=== PATIENT | male | born 1985 | race Caucasian/White ===

== ENCOUNTER 2021-09-22 07:29 | Emergency (ER) | payer BC ==
[~2021-09-22] VITALS: Ht 170.2 cm; Wt 59.0 kg
[2021-09-22] MEDS ORDERED: LORAZEPAM 1 MG TABLET ONE (07:53)
--- NOTE | 2021-09-22 07:59 | NUR ---
PO ativan given as ordered.
[2021-09-22] MEDS ORDERED: LORAZEPAM 1 MG TABLET PO ONE (08:00)
[2021-09-22 08:45] VITALS: BP 132/75
[2021-09-22] MEDS ORDERED: LORA-258 PO (08:47)
--- NOTE | 2021-09-22 08:52 | NUR ---
Patient discharged to home in stable condition. Written and verbal after care instructions given. Patient verbalizes understanding of instruction.
== END 2021-09-22 08:53 | disposition home or self-care (01) ==
LOC: ER 07:45
DX: F41.0 Panic disorder [episodic paroxysmal anxiety] (principal); F32.A Depression, unspecified; Z60.2 Problems related to living alone; Z79.899 Other long term (current) drug therapy
CPT/HCPCS: 71045-TC

== ENCOUNTER 2021-09-23 06:58 | Emergency (ER) | payer BC ==
[~2021-09-23] VITALS: Ht 170.2 cm; Wt 63.5 kg
[~2021-09-23 06:58] MED LIST: LORA-258 PO
--- NOTE | 2021-09-23 07:17 | NUR ---
BIBS C/O ANXIETY AND INSOMNIA X2DAYS. PT A/OX4. TOLERATING R/A WELL WITH NO SOB. AMBULATORY WITH STEADY GAIT. SAFETY MEASURES IN PLACE.
[2021-09-23 07:19] VITALS: BP 138/92
[2021-09-23] MEDS ORDERED: LORAZEPAM INJ 2 MG/ML VIAL ONE (07:21)
[2021-09-23] MEDS ORDERED: LORAZEPAM INJ 2 MG/ML VIAL IM ONE (07:30)
--- NOTE | 2021-09-23 08:13 | NUR ---
Patient discharged to home in stable condition. Written and verbal after care instructions given. Patient verbalizes understanding of instruction.
== END 2021-09-23 08:13 | disposition home or self-care (01) ==
LOC: ER 07:00
DX: F41.9 Anxiety disorder, unspecified (principal); G47.00 Insomnia, unspecified; F32.A Depression, unspecified; Z60.2 Problems related to living alone; Z79.899 Other long term (current) drug therapy
CPT/HCPCS: 99283; 96372; J2060

== ENCOUNTER 2021-11-10 04:16 | Emergency (ER) | payer BC ==
[~2021-11-10] VITALS: Ht 170.2 cm; Wt 63.5 kg
[2021-11-10 05:13] VITALS: BP 126/80
[2021-11-10] MEDS ORDERED: ZOLP10TA2 PO (05:43)
[2021-11-10] MEDS ORDERED: NICO-676 TP (05:45)
[2021-11-20] MEDS ORDERED: ESZO3TAB27 PO (14:53)
== END 2021-11-10 06:01 | disposition home or self-care (01) ==
LOC: ER 04:22
DX: G47.00 Insomnia, unspecified (principal); F17.200 Nicotine dependence, unspecified, uncomplicated; M79.675 Pain in left toe(s); F41.9 Anxiety disorder, unspecified; F32.A Depression, unspecified; Z60.2 Problems related to living alone; Z79.899 Other long term (current) drug therapy

== ENCOUNTER 2021-11-19 05:37 | Emergency (ER) | payer BC ==
[~2021-11-19] VITALS: Ht 170.2 cm; Wt 63.5 kg
[~2021-11-19 05:37] MED LIST changes: +NICO-676 TP; +ZOLP10TA2 PO
[2021-11-19 06:02] VITALS: BP 106/73
--- NOTE | 2021-11-19 06:02 | NUR ---
BIBSELF FROM HOME C/O WAKING UP FEELING SOB, "FEELS LIKE THROAT IS SWOLLEN" X FEW DAYS. TOLERATING R/A AT 94%. RESP EVEN AND NON LABORED. DENIES SORE THROAT. A/OX4. AMB WITH STEADY GAIT
--- NOTE | 2021-11-19 06:19 | NUR ---
DR. LAW OH AT PT'S BEDSIDE
[2021-11-19] MEDS ORDERED: ONDA4TAB11 PO (06:26)
[2021-11-19] MEDS ORDERED: ESZO3TAB27 PO (06:26)
[2021-11-19] MEDS ORDERED: IBUPROFEN 400 MG TABLET ONE (06:27)
[2021-11-19] MEDS ORDERED: IBUPROFEN 400 MG TABLET PO ONE (06:30)
[2021-11-20] MEDS ORDERED: ESZO3TAB27 PO (14:53)
== END 2021-11-19 06:42 | disposition home or self-care (01) ==
LOC: ER 06:20
DX: J02.9 Acute pharyngitis, unspecified (principal); F41.9 Anxiety disorder, unspecified; F32.A Depression, unspecified; F17.200 Nicotine dependence, unspecified, uncomplicated; Z60.2 Problems related to living alone; Z79.899 Other long term (current) drug therapy

== ENCOUNTER 2022-03-25 21:46 | Emergency (ER) | payer BC ==
[~2022-03-25] VITALS: Ht 170.2 cm; Wt 61.2 kg
[~2022-03-25 21:46] MED LIST changes: +ESZO3TAB27 PO; +ONDA4TAB11 PO
[2022-03-25] MEDS ORDERED: ONDANSETRON HCL/PF 4 MG/2 ML VIAL IVP ONE (22:30)
[2022-03-25] MEDS ORDERED: DICYCLOMINE HCL INJ 20 MG/2 ML AMPUL IM ONE ×2 (22:30→22:38)
[2022-03-25] MEDS ORDERED: IV NS 0.9% 1,000 ML BAG IV ONE (22:30)
[2022-03-25] MEDS ORDERED: ONDANSETRON HCL/PF 4 MG/2 ML VIAL ONE ×3 (22:38→23:58)
--- NOTE | 2022-03-25 22:52 | NUR ---
IV REBEKAH INSERTED ON LEFT AC G18.
[2022-03-25] MEDS ORDERED: ONDANSETRON HCL/PF 4 MG/2 ML VIAL IV ONE (23:30)
[2022-03-25] MEDS ORDERED: ONDA4TAB5 PO (23:35)
[2022-03-25] MEDS ORDERED: KETOROLAC TROMETHAMINE INJ 30 MG/ML VIAL ONE (23:58)
[2022-03-26] MEDS ORDERED: KETOROLAC TROMETHAMINE INJ 30 MG/ML VIAL IV ONE
[2022-03-26] MEDS ORDERED: ONDANSETRON HCL/PF 4 MG/2 ML VIAL IV ONE
--- NOTE | 2022-03-26 00:16 | NUR ---
IV CANNULA REMOVED
[2022-03-26 00:19] VITALS: BP 124/71
== END 2022-03-26 00:20 | disposition home or self-care (01) ==
LOC: ER 21:55
DX: K52.9 Noninfective gastroenteritis and colitis, unspecified (principal); R11.2 Nausea with vomiting, unspecified; F41.9 Anxiety disorder, unspecified; F32.A Depression, unspecified; F17.200 Nicotine dependence, unspecified, uncomplicated; Z60.2 Problems related to living alone; Z79.899 Other long term (current) drug therapy
CPT/HCPCS: 99284; 96374; 96361; 96376 ×2; 96372; 96375; J1885; J2405 ×3; J7030; J0500

== ENCOUNTER 2023-10-23 12:09 | Emergency (ER) | payer SELFPAY ==
[~2023-10-23 12:09] MED LIST changes: +ONDA4TAB5 PO
== END 2023-10-23 12:24 | disposition home or self-care (01) ==
LOC: ER 12:13
DX: T14.8XXA Other injury of unspecified body region, initial encounter (principal); Z53.21 Procedure and treatment not carried out due to patient leaving prior to being seen by health care provider; W57.XXXA Bitten or stung by nonvenomous insect and other nonvenomous arthropods, initial encounter; Y93.89 Activity, other specified; Y92.89 Other specified places as the place of occurrence of the external cause; Y99.8 Other external cause status

== ENCOUNTER 2023-10-25 22:23 | Emergency (ER) | payer SELFPAY ==
[~2023-10-25] VITALS: Ht 170.2 cm; Wt 61.2 kg
[2023-10-25 22:37] VITALS: BP 138/74; TEMP 98; O2SAT 99
== END 2023-10-26 00:52 | disposition left against medical advice (07) ==
LOC: ER 22:28
DX: M79.672 Pain in left foot (principal); Z53.21 Procedure and treatment not carried out due to patient leaving prior to being seen by health care provider

== ENCOUNTER 2023-11-22 16:49 | Inpatient (IN) | payer MEDICAID ==
[~2023-11-22] VITALS: Ht 170.2 cm; Wt 61.2 kg
[2023-11-22] MEDS ORDERED: ONDANSETRON HCL/PF 4 MG/2 ML VIAL ONE (17:14)
[2023-11-22] MEDS: ONDANSETRON HCL/PF 4 MG/2 ML VIAL IVP ONE (17:20)
[2023-11-22 17:23] LABS: BASOPHILS % (AUTO) 0.3 % (0.0-2.0); HEMATOCRIT 55 % (39-51); LYMPHOCYTES # (AUTO) 1.7 K/uL (0.8-4.8); MEAN CORPUSCULAR HEMOGLOBIN 33 PG (26.0-33.0); MEAN CORPUSCULAR HGB CONC 35 g/dl (31.0-36.0); MEAN CORPUSCULAR VOLUME 95 fL (80-96); MONOCYTES # (AUTO) 1.2 K/uL (0.1-1.30); MONOCYTES % (AUTO) 7.1 % (2.0-12.0); NEUTROPHILS # (AUTO) 13.7 K/uL (1.8-8.9); NEUTROPHILS % (AUTO) 82.6 % (43.0-81.0); PLATELET COUNT (AUTO) 327 K/uL (150-450); RED BLOOD CELL COUNT(AUTO) 5.83 MIL/uL (4.5-6.0); WHITE BLOOD COUNT (AUTO) 16.6 K/uL (4.3-11.0)
[2023-11-22] MEDS: IV NS 0.9% 250 ML BAG IV ONE (17:28)
[2023-11-22 17:32] LABS: HEMOGLOBIN 19.4 g/dL (13.5-17.5)
[2023-11-22 17:40] LABS: CALCIUM, SERUM 11.7 mg/dL (8.5-10.1); CARBON DIOXIDE 20 mmol/L (21-32); CHLORIDE 89 mmol/L (98-107); GLUCOSE 143 mg/dL (74-106); POTASSIUM 3.6 mmol/L (3.5-5.1); SODIUM SERUM 130 mmol/L (136-145); UREA NITROGEN, BLOOD 29 mg/dL (7-18)
[2023-11-22 17:48] LABS: ALANINE AMINOTRANSFERASE 27 U/L (12-78); ALBUMIN 5.8 g/dL (3.4-5.0); ALKALINE PHOSPHATASE 107 U/L (46-116); ASPARTATE AMINOTRANSFERASE 26 U/L (15-37); BILIRUBIN,DIRECT 0.3 mg/dL (0.0-0.2); BILIRUBIN,TOTAL 1.7 mg/dL (0.2-1.0); LIPASE 45 U/L (16-77); TOTAL PROTEIN, SERUM 9.8 g/dL (6.4-8.2)
[2023-11-22 18:01] LABS: LACTIC ACID 3.9 mmol/L (0.4-2.0)
[2023-11-22] MEDS ORDERED: MORPHINE SULFATE INJ 4 MG/ML DISP.SYRIN ONE (18:12)
[2023-11-22] MEDS: MORPHINE SULFATE INJ 2 MG/ML DISP.SYRIN IV ONE (18:17)
[2023-11-22] MEDS ORDERED: MORPHINE SULFATE INJ 2 MG/ML DISP.SYRIN IV ONE (18:30)
[2023-11-22 18:37] LABS: BAND % (MANUAL) 2 % (0.0-5.0); LYMPHOCYTES % (MANUAL) 7 % (16-48); MONOCYTES % (MANUAL) 7 % (0-11.0); NEUTROPHILS % (MANUAL) 84 (42-76); PLATELET ESTIMATE ADEQUATE
[2023-11-22 18:38] LABS: ANISOCYTOSIS 1+
[2023-11-22] MEDS ORDERED: HALOPERIDOL LACTATE INJ 5 MG/ML VIAL ONE (18:44)
[2023-11-22] MEDS: HALOPERIDOL LACTATE INJ 5 MG/ML VIAL IV ONE (18:58)
[2023-11-22] MEDS: IV NS 0.9% 1,000 ML BAG IV ONE (19:00)
[2023-11-22] MEDS ORDERED: MAG HYDROX/AL HYDROX/SIMETH 30 ML UDC PO PRN (20:30)
[2023-11-22] MEDS ORDERED: Z GUARD REMEDY 4 OZ OINT TP PRN (20:30)
[2023-11-22] MEDS ORDERED: MAGNESIUM HYDROXIDE 30 ML UDC PO PRN (20:30)
[2023-11-22] MEDS ORDERED: ACETAMINOPHEN 325 MG TABLET PO PRN (20:30)
[2023-11-22] MEDS ORDERED: ONDANSETRON HCL/PF 4 MG/2 ML VIAL IVP PRN (20:30)
[2023-11-22 20:50] VITALS: O2SAT 98
[2023-11-22 20:52] VITALS: BP 128/86; TEMP 98.4; O2SAT 99
[2023-11-22] MEDS: IV LR 1000 ML 1,000 ML IV SCH (21:50)
[2023-11-23] MEDS: MORPHINE SULFATE INJ 2 MG/ML DISP.SYRIN IV PRN (02:30)
[2023-11-23 05:09] LABS: APPEARANCE,URINE CLEAR (CLEAR); BILIRUBIN,URINE 1+ (NEGATIVE); BLOOD, URINE NEGATIVE Ery/uL (NEGATIVE); COLOR,URINE YELLOW (YELLOW); KETONES,URINE NEGATIVE (NEGATIVE); LEUKOCYTE ESTERASE ,URINE NEGATIVE (NEGATIVE); NITRITE, URINE NEGATIVE (NEGATIVE); PROTEIN,URINE 2+ mg/dl (NEGATIVE); UGLUCOSE NEGATIVE (NEGATIVE); UROBILINOGEN,URINE 0.2 EU/dL (0.2)
[2023-11-23 05:25] LABS: RBC,URINE 0-2 /HPF (0-2); WBC,URINE NONE SEEN /HPF (0-3)
[2023-11-23 05:26] LABS: ADD URINE CULTURE NO; BACTERIA,URINE 1+ /HPF (None Seen); FINE GRANULAR CASTS,URINE Few /LPF (None Seen); SQUAMOUS EPITHELIAL CELL,UR 0-2 /HPF (None Seen)
[2023-11-23 05:27] LABS: AMPHETAMINE, URINE NEGATIVE (NEGATIVE); BARBITURATE, URINE NEGATIVE (NEGATIVE); BENZODIAZEPINE, URINE NEGATIVE (NEGATIVE); COCCAINE, URINE NEGATIVE (NEGATIVE)
[2023-11-23 05:28] LABS: CANNABINOID, URINE POSITIVE (NEGATIVE); OPIATE, URINE POSITIVE (NEGATIVE); PHENCYCLIDINE SCREEN,URINE NEGATIVE (NEGATIVE)
[2023-11-23 07:00] VITALS: BP 104/62; TEMP 97.9; O2SAT 98
[2023-11-23 07:07] LABS: ALBUMIN 3.8 g/dL (3.4-5.0); BASOPHILS % (AUTO) 0.3 % (0.0-2.0); BILIRUBIN,TOTAL 0.9 mg/dL (0.2-1.0); CALCIUM, SERUM 9.4 mg/dL (8.5-10.1); CREATININE 1.3 mg/dL (0.6-1.3); EOSINOPHILS % (AUTO) 0.3 % (0.0-6.0); HEMATOCRIT 44 % (39-51); HEMOGLOBIN 15.6 g/dL (13.5-17.5); LYMPHOCYTES # (AUTO) 1.8 K/uL (0.8-4.8); LYMPHOCYTES % (AUTO) 22.8 % (20.0-44.0); MAGNESIUM 2.3 mg/dL (1.8-2.4); MEAN CORPUSCULAR HEMOGLOBIN 33 PG (26.0-33.0); MEAN CORPUSCULAR HGB CONC 36 g/dl (31.0-36.0); MEAN CORPUSCULAR VOLUME 93 fL (80-96); MONOCYTES # (AUTO) 0.8 K/uL (0.1-1.30); MONOCYTES % (AUTO) 10.5 % (2.0-12.0); NEUTROPHILS # (AUTO) 5.2 K/uL (1.8-8.9); NEUTROPHILS % (AUTO) 66.1 % (43.0-81.0); PHOSPHORUS 4.3 mg/dL (2.5-4.9); PLATELET COUNT (AUTO) 229 K/uL (150-450); POTASSIUM 3.3 mmol/L (3.5-5.1); RED BLOOD CELL COUNT(AUTO) 4.72 MIL/uL (4.5-6.0); RED CELL DISTRIBUTION WIDTH 12.9 % (11.5-15.0); TOTAL PROTEIN, SERUM 7.4 g/dL (6.4-8.2); WHITE BLOOD COUNT (AUTO) 7.9 K/uL (4.3-11.0)
[2023-11-23] MEDS: PANTOPRAZOLE 40 MG VIAL IV SCH (08:08)
[2023-11-23] MEDS ORDERED: CIPROFLOXACIN HCL 250 MG TABLET PO SCH (09:00)
[2023-11-23] MEDS: CIPROFLOXACIN HCL 500 MG TABLET PO SCH (10:25)
[2023-11-23] MEDS: DICYCLOMINE HCL 10 MG CAPSULE PO SCH (12:02)
[2023-11-23] MEDS: METRONIDAZOLE 500 MG TABLET PO SCH (12:02)
[2023-11-23 16:00] VITALS: BP 103/77; TEMP 98.1; O2SAT 99
[2023-11-23 21:06] VITALS: BP 107/77; TEMP 98.4; O2SAT 98
[2023-11-24 06:48] LABS: BASOPHILS % (AUTO) 0.9 % (0.0-2.0); EOSINOPHILS % (AUTO) 1.1 % (0.0-6.0); HEMATOCRIT 40 % (39-51); HEMOGLOBIN 13.8 g/dL (13.5-17.5); LYMPHOCYTES # (AUTO) 1.2 K/uL (0.8-4.8); LYMPHOCYTES % (AUTO) 30.5 % (20.0-44.0); MEAN CORPUSCULAR HEMOGLOBIN 33 PG (26.0-33.0); MEAN CORPUSCULAR HGB CONC 35 g/dl (31.0-36.0); MEAN CORPUSCULAR VOLUME 95 fL (80-96); MONOCYTES # (AUTO) 0.4 K/uL (0.1-1.30); MONOCYTES % (AUTO) 11.4 % (2.0-12.0); NEUTROPHILS # (AUTO) 2.1 K/uL (1.8-8.9); NEUTROPHILS % (AUTO) 56.1 % (43.0-81.0); PLATELET COUNT (AUTO) 167 K/uL (150-450); RED BLOOD CELL COUNT(AUTO) 4.17 MIL/uL (4.5-6.0); RED CELL DISTRIBUTION WIDTH 12.9 % (11.5-15.0); WHITE BLOOD COUNT (AUTO) 3.8 K/uL (4.3-11.0)
[2023-11-24 07:24] LABS: ALBUMIN 2.9 g/dL (3.4-5.0); BILIRUBIN,TOTAL 0.9 mg/dL (0.2-1.0); CALCIUM, SERUM 8.6 mg/dL (8.5-10.1); CREATININE 0.8 mg/dL (0.6-1.3); MAGNESIUM 1.9 mg/dL (1.8-2.4); PHOSPHORUS 2.5 mg/dL (2.5-4.9); POTASSIUM 3.8 mmol/L (3.5-5.1); TOTAL PROTEIN, SERUM 5.7 g/dL (6.4-8.2)
[2023-11-24 08:06] VITALS: BP 112/76; TEMP 97.9; O2SAT 99
[2023-11-24] MEDS ORDERED: IV LR 1000 ML 1,000 ML IV PRN (08:13)
[2023-11-24] MEDS: PANTOPRAZOLE 40 MG TABLET.DR PO SCH (09:14)
[2023-11-24] MEDS ORDERED: DICY10CA37 PO (11:27)
[2023-11-24] MEDS ORDERED: METR500T PO (11:27)
[2023-11-24] MEDS ORDERED: CIPR500S2 PO (11:27)
[2023-11-25 08:10] LABS: PTH, INTACT 10 pg/mL (15-65)
[2023-11-28 12:07] LABS: *SPE A/G RATIO 1.4 (0.7-1.7); *SPE ALBUMIN 2.6 g/dL (2.9-4.4); *SPE ALPHA-1-GLOBULIN 0.1 g/dL (0.0-0.4); *SPE ALPHA-2-GLOBULIN 0.4 g/dL (0.4-1.0); *SPE BETA GLOBULIN 0.8 g/dL (0.7-1.3); *SPE GLOBULIN, TOTAL 1.8 g/dL (2.2-3.9); *SPE M-SPIKE Not Observed g/dL (Not Observed); *SPE PROTEIN TOTAL 4.4 g/dL (6.0-8.5); *SPEGAMMA GLOBULIN 0.6 g/dL (0.4-1.8)
== END 2023-11-24 15:12 | disposition home or self-care (01) | DRG 248 ==
LOC: ER 16:53 → MED 20:10
PROVIDERS: ATTEND Nurse Practitioner Family
DX: A04.9 Bacterial intestinal infection, unspecified (principal); N17.0 Acute kidney failure with tubular necrosis; E87.20 Acidosis, unspecified; E86.0 Dehydration; E87.1 Hypo-osmolality and hyponatremia; D72.829 Elevated white blood cell count, unspecified; E80.6 Other disorders of bilirubin metabolism; D75.1 Secondary polycythemia; E87.6 Hypokalemia
CPT/HCPCS: 36415; 80048-TC; 80053-TC; 80076-TC; 81001; 82550-TC; 83605-TC; 83690-TC; 83735-TC; 83970; 84100-TC; 84155; 84165; 85025-TC; 98960; A4223; G0378; J1630; J2270; J2405; J2470; J7030; J7120

== ENCOUNTER 2024-02-26 10:40 | Emergency (ER) | payer MEDICAID, OTHER ==
[~2024-02-26] VITALS: Ht 170.2 cm; Wt 59.0 kg
[~2024-02-26 10:40] MED LIST changes: +CIPR500S2 PO; +DICY10CA37 PO; -ESZO3TAB27 PO; -LORA-258 PO; +METR500T PO; -NICO-676 TP; -ONDA4TAB11 PO; -ONDA4TAB5 PO; -ZOLP10TA2 PO
[2024-02-26 10:55] VITALS: BP 136/81; TEMP 98.3; O2SAT 97
== END 2024-02-26 14:18 | disposition home or self-care (01) ==
LOC: ER 10:43
DX: K13.0 Diseases of lips (principal); F17.200 Nicotine dependence, unspecified, uncomplicated; F41.9 Anxiety disorder, unspecified; F32.A Depression, unspecified; Z60.2 Problems related to living alone

== ENCOUNTER 2024-09-25 15:40 | Emergency (ER) | payer OTHER ==
[~2024-09-25] VITALS: Ht 170.2 cm; Wt 59.0 kg
[2024-09-25] MEDS ORDERED: AMOX-430 PO (17:38)
[2024-09-25] MEDS ORDERED: HYDR-3976 GT (17:38)
[2024-09-25 18:06] VITALS: BP 126/89; TEMP 98.6; O2SAT 99
== END 2024-09-25 18:06 | disposition home or self-care (01) ==
LOC: ER 15:44
DX: K04.7 Periapical abscess without sinus (principal); F17.200 Nicotine dependence, unspecified, uncomplicated; F41.9 Anxiety disorder, unspecified; F32.A Depression, unspecified; Z60.2 Problems related to living alone

== ENCOUNTER 2025-01-06 02:34 | Emergency (ER) | payer OTHER ==
[~2025-01-06] VITALS: Ht 170.2 cm; Wt 59.0 kg
[~2025-01-06 02:34] MED LIST changes: +AMOX-430 PO; +HYDR-3976 GT
[2025-01-06 03:16] VITALS: TEMP 98
[2025-01-06] MEDS: KETOROLAC TROMETHAMINE 15 MG/ML VIAL IM ONE (04:00)
[2025-01-06] MEDS ORDERED: KETOROLAC TROMETHAMINE 15 MG/ML VIAL ONE (04:11)
[2025-01-06] MEDS ORDERED: HYDROCODONE/APAP 5/325MG TABLET ONE (04:11)
[2025-01-06] MEDS: HYDROCODONE/APAP 5/325MG TABLET PO ONE (04:25)
[2025-01-06 04:48] VITALS: BP 131/73; O2SAT 98
[2025-01-06] MEDS ORDERED: LIDO30AD10 TP (05:21)
[2025-01-06] MEDS ORDERED: NAPR500T6 PO (05:21)
[2025-01-06] MEDS ORDERED: CYCL10TA9 PO (05:21)
== END 2025-01-06 06:50 | disposition left against medical advice (07) ==
LOC: ER 02:34
DX: R07.89 Other chest pain (principal); M25.511 Pain in right shoulder; R68.84 Jaw pain; F17.200 Nicotine dependence, unspecified, uncomplicated; Z60.2 Problems related to living alone; Y04.0XXA Assault by unarmed brawl or fight, initial encounter; Y93.89 Activity, other specified; Y92.89 Other specified places as the place of occurrence of the external cause; Y99.8 Other external cause status
CPT/HCPCS: 70486-TC; 71111-TC; 73030-TC; J1885